=== PATIENT | female | born 2000 | race Caucasian/White ===

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

== ENCOUNTER 2022-02-25 21:08 | Emergency (ER) | payer BC ==
[~2022-02-25] VITALS: Ht 172.7 cm; Wt 77.3 kg
[~2022-02-25 21:08] MED LIST: MACROBID 1100 MG/CAP PO
[2022-02-25 21:15] VITALS: TEMP 98
[2022-02-25] MEDS ORDERED: YASMIN 3 MG-0.01 TAB PO (21:18)
[2022-02-25 21:33] LABS: COLLECTION METHOD CLEAN CATCH
[2022-02-25 21:41] LABS: PH 7 (5-8); SQUAMOUS EPITHELIAL None Seen /hpf (0-10); URINE APPEARANCE Clear (CLEAR/HAZY); URINE BACTERIA Rare /hpf (NONE SEEN); URINE BILIRUBIN Negative (NEGATIVE); URINE BLOOD 3+ (NEGATIVE); URINE COLOR Colorless (YELLOW); URINE GLUCOSE Negative (NEGATIVE); URINE KETONE Negative (NEGATIVE); URINE LEUKOCYTE ESTERASE 2+ (NEGATIVE); URINE NITRATE Negative (NEGATIVE); URINE PROTEIN(semi-quant) Negative (NEGATIVE); URINE RBC None Seen /hpf (0-2); URINE UROBILINOGEN Negative (NEGATIVE)
[2022-02-25] MEDS ORDERED: MACROBID 1100 MG/CAP PO (22:44)
[2022-02-25 23:06] VITALS: BP 132/78; PULSE 76
== END 2022-02-25 23:06 | disposition home or self-care (01) ==
LOC: COL.ER 21:08
PROVIDERS: Nurse Practitioner
DX: N39.0 Urinary tract infection, site not specified (principal); Z88.0 Allergy status to penicillin; Z88.1 Allergy status to other antibiotic agents